=== PATIENT | female | born 1975 | race Two or more races ===

== ENCOUNTER 2022-07-26 20:55 | Emergency (ER) | payer SELFPAY ==
[2022-07-26 21:33] VITALS: BP 139/92
[2022-07-26] MEDS ORDERED: BUPR1SUB5 SL ×2 (21:48)
== END 2022-07-26 23:25 | disposition left against medical advice (07) ==
LOC: EDBD 20:55 → M ED 20:55
DX: Z53.21 Procedure and treatment not carried out due to patient leaving prior to being seen by health care provider (principal)